=== PATIENT | female | born 1940 | race Caucasian/White ===

== ENCOUNTER 2017-02-11 16:28 | Inpatient (IN) | payer MEDICARE, OTHER ==
[~2017-02-11] VITALS: Ht 170.2 cm; Wt 103.6 kg
[~2017-02-11 16:28] MED LIST: ASPI-676 PO; CELE200C PO; CHOL2000 PO; CITA-98 PO; GLIM4TAB55 PO; HYD25 PO; LANT3I SC; LEVO88TA36 PO; MELA1TAB3 PO; MULT-552 PO; PIOG30TA19 PO; SITA1TAB7 PO; SMV40T PO; TIMO10DR7 BOTH EYES
[2017-02-11] MEDS ORDERED: HYDROCODONE/APAP (5/325) TAB PO ONE (18:00)
--- NOTE | 2017-02-11 18:45 | RADRPT ---
PROCEDURE: XR Left Elbow. CLINICAL INDICATION: Trauma, limited movement, fall TECHNIQUE: AP oblique and lateral views of the left elbow performed. COMPARISON: 03/17/2015 FINDINGS: The patient is status post ORIF of previous of fracture of olecranon process with plate and screws. There is deformity of the radial head suggestive of old fracture. There is an acute fracture of the lateral supracondylar region of the humerus with approximate 3 mm displacement of lateral fracture f ragment. 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 IMPRESSION: Acute fracture of the lateral supracondylar region of the humerus with approximate 3 mm displacement of lateral fracture fragment. Hemarthrosis. Chronic changes noted above. Please see above. RPTAT: HJES .Kapil Zuniga MD, Date Time Electronically viewed and signed by .Kapil Zuniga MD, on 02/11/2017 18:45 .S/
--- NOTE | 2017-02-11 18:46 | RADRPT ---
PROCEDURE: XR Hip. CLINICAL INDICATION: Fall TECHNIQUE: AP and lateral views of the left hip were performed. COMPARISON: None. FINDINGS: No acute fracture or dislocation is seen. Minimal osteoarthrosis at hip. IMPRESSION: No acute abnormality seen. Please see above. RPTAT: HJES .Kapil Zuniga MD, Date Time Electronically viewed and signed by .Kapil Zuniga MD, on 02/11/2017 18:46 .S/
--- NOTE | 2017-02-11 19:32 | RADRPT ---
PROCEDURE: CT of the left hip without contrast CLINICAL INDICATION: Trauma with left hip pain TECHNIQUE: CT scan of the left hip was performed on a GE [employer]ed 64-slice scanner. No IV cont rast was administered. Coronal and sagittal reformatted images were obtained from the axial source images. The CTDI is 18.37 mGy and the total exam DLP equals 575.35 mGy-cm. Images were reviewed on a high-resolution PACS workstation. COMPARISON: Plain films from 02/11/2017 FINDINGS: Diffuse osteopenia is seen. Nondisplaced fractures of the left acetabulum is seen involving the roof , quadrilateral plate, and anterior column. No other fracture is seen. No dislocation is identifie d. Soft tissue swelling in the adjacent fracture site is seen. No fluid collection or hematoma is identified. The visualized portions of the pelvis appear grossly unremarkable. IMPRESSION: 1. Nondisplaced fractures of the left acetabulum as detailed above. RPTAT: HPNM Physician Maricruz Date Time Electronically viewed and signed by Physician Maricruz on 02/11/2017 19:32 /
[2017-02-11 21:44] LABS: ADD SCAN DIFF NO
[2017-02-11 21:47] LABS: BASOPHIL # 0.1 10^3/ul (0.0-0.1); BASOPHILS % 0.5 % (0.0-2.0); EOSINOPHILS # 0.1 10^3/ul (0.0-0.5); EOSINOPHILS % 0.6 % (0.0-7.0); HEMATOCRIT 40.3 % (37.0-47.0); LYMPHOCYTES # 2.4 10^3/ul (0.8-2.9); MEAN CORPUSCULAR HEMOGLOBIN 30.4 pg (29.0-33.0); MEAN CORPUSCULAR HGB CONC 34.7 g/dl (32.0-37.0); MEAN CORPUSCULAR VOLUME 87.6 fl (82.0-101.0); MONOCYTE # 0.9 10^3/ul (0.3-0.9); MONOCYTES % 8.4 % (0.0-11.0); NEUTROPHILS % 66.9 % (39.0-77.0); PLATELET COUNT 204 10^3/UL (140-415); RED CELL DISTRIBUTION WIDTH 13.2 % (11.5-14.5); WHITE BLOOD COUNT 10.4 10^3/ul (4.8-10.8)
[2017-02-11 22:05] LABS: INR 1.02; PARTIAL THROMBOPLASTIN TIME 34.3 Sec (25.0-35.0); PROTIME 13.4 Sec (12.2-14.2)
--- NOTE | 2017-02-11 22:06 | ERA ---
ER Documentation Chief Complaint Date/Time DATE: 02/11/17 TIME: 21:47 Chief Complaint BIB RA 881 S/P FALL LEFT ELBOW PAIN AND ABRASION HPI Patient is a 76-year-old female who presents with sudden onset, constant, moderate, aching pain to left elbow and left hip after tripping over a garden hose and falling on her left side. The patient denies head trauma, neck pain, back pain, chest pain, abdominal pain. Patient denies numbness or paresthesia to the left arm or left leg. Patient denies taking blood thinners. ROS All systems reviewed and are negative except as per history of present illness. Medications Home Meds Reported Medications Brimonidine/Timolol* (Combigan*) 5 Ml Drops, 1 DROP BOTH EYES BID, BOTTLE INT 1 GTT INTO OU Q12H 02/11/17 Multivits-Min/Iron/FA/Lutein (Centrum Silver Women Tablet) 1 Each Tablet, 1 EACH PO, TAB 02/11/17 Ergocalciferol (Vitamin D2) (VITAMIN D2) 2,000 Unit Tablet, 2000 UNIT PO, TAB 02/11/17 Cholecalciferol* (Vitamin D3*) 2,000 Unit Cap, 2000 UNIT PO DAILY, CAP 03/16/15 Multivitamins* (Once Daily*) 1 Tab Tablet, 1 TAB PO DAILY, TAB 03/16/15 Sitagliptin Phos-Metformin Hcl (Janumet) 50-1,000 Mg Tablet, 1 TAB PO BID, TAB 03/16/15 Hydrochlorothiazide* (Hydrochlorothiazide*) 25 Mg Tab, 25 MG PO DAILY, TAB 03/16/15 Aspirin (Sumeet Child) 81 Mg Chew, 81 MG PO DAILY 09/21/11 Citalopram Hydrobromide* (Celexa*) 20 Mg Tablet, 20 MG PO DAILY 09/21/11 Celecoxib* (Celebrex*) 200 Mg Capsule, 200 MG PO DAILY 09/21/11 Pioglitazone Hcl* (Actos*) 30 Mg Tablet, 30 MG PO DAILY 09/21/11 Glimepiride* (Amaryl*) 4 Mg Tablet, 4 MG PO BID 09/21/11 Levothyroxine Sodium (Levothroid) 88 Mcg Tablet, 88 MCG PO DAILY 09/21/11 Simvastatin (Simvastatin) 40 Mg Tablet, 40 MG PO DAILY 09/21/11 Discontinued Reported Medications Timolol Maleate* (Timoptic*) 0.5%- 5ml Opht, 1 DROP BOTH EYES BID, EA 03/16/15 Melatonin-Pyridoxine Hcl (Melatonin) 5-1 Mg Tablet, 1 TAB PO HS, TAB 03/16/15 Discontinued Scripts Insulin Glargine* (Lantus*) 100 Unit/Ml Soln, 10 UNIT SC QHS for 30 Days Prov:BENJY MCCRAY S. 03/21/15 Allergies Allergies: Coded Allergies: morphine (Unverified Allergy, Unknown, 02/11/17) niacin (Unverified Adverse Reaction, Intermediate, REDNESS, 02/11/17) Uncoded Allergies: IVP CONTRAST (Adverse Reaction, Severe, RASH, 09/21/11) PMhx/Soc Past medical history: Diabetes, hypertension, hyperlipidemia Past surgical history: Bilateral knees, left elbow, appendectomy Social history: Denies tobacco or alcohol History of Surgery: Yes (LEFT KNEE REPLACEMENT, LEFT ARM FRACTURE W/ PLATES PLACEMENT) Anesthesia Reaction: No Hx Neurological Disorder: Yes (SYNCOPAL EPISODES) Hx Respiratory Disorders: No Hx Cardiac Disorders: Yes (HTN, RT BUNDLE BRANCH BLOCK) Hx Psychiatric Problems: No Hx Miscellaneous Medical Probl: Yes (HTN, hypothyroidism, DM, HLD, L TKA, tonsillectomy. ) Hx Alcohol Use: No Hx Substance Use: No Hx Tobacco Use: No FmHx Family History: No coronary disease, No diabetes Physical Exam Vitals Vital Signs Date Time Temp Pulse Resp B/P Pulse Ox O2 Delivery O2 Flow Rate FiO2 02/11/17 16:31 97.5 84 20 140/80 100 Physical Exam Const: Alert, no acute distress Head: Atraumatic Eyes: Normal Conjunctiva, no pallor, no icterus ENT: Normal External Ears, Nose and Mouth. Moist mucous membranes Neck: Full range of motion..~ No meningismus. No midline tenderness Resp: Clear to auscultation bilaterally, no wheezes, no rales. Chest wall stable nontender Cardio: Regular rate and rhythm, no murmurs Abd: Soft, non tender, non distended. Normal bowel sounds Skin: No petechiae or rashes, intact Back: No midline or flank tenderness Ext: No cyanosis, or edema. Pain with ranging of left hip. Tenderness and swelling of left elbow. No wrist or shoulder tenderness. 2 second cap refill in all digits, 2+ radial and DP pulses bilaterally Neur: Awake and alert, cranial nerves II through XII intact bilaterally, strength and sensation intact in median, radial, and ulnar nerve distribution in left arm. Psych: Normal Mood and Affect Result Diagram: 02/11/17210902/11/172109 Results 24 hrs Laboratory Tests Test 02/11/17 21:10 02/11/17 21:56 White Blood Count 10.410^3/ul Red Blood Count 4.6010^6/ul Hemoglobin 14.0g/dl Hematocrit 40.3% Mean Corpuscular Volume 87.6fl Mean Corpuscular Hemoglobin 30.4pg Mean Corpuscular Hemoglobin Concent 34.7g/dl Red Cell Distribution Width 13.2% Platelet Count 65212^3/UL Mean Platelet Volume 10.0fl Neutrophils % 66.9% Lymphocytes % 23.0% Monocytes % 8.4% Eosinophils % 0.6% Basophils % 0.5% Nucleated Red Blood Cells % 0.0/100WBC Neutrophils # 7.010^3/ul Lymphocytes # 2.410^3/ul Monocytes # 0.910^3/ul Eosinophils # 0.110^3/ul Basophils # 0.110^3/ul Nucleated Red Blood Cells # 0.010^3/ul Prothrombin Time 13.4Sec Prothrombin Time Ratio 1.0 INR International Normalized Ratio 1.02 Activated Partial Thromboplast Time 34.3Sec Sodium Level 138mmol/L Potassium Level 3.3mmol/L Chloride Level 100mmol/L Carbon Dioxide Level 25mmol/L Anion Gap 16 Blood Urea Nitrogen 29mg/dl Creatinine 1.05mg/dl Glucose Level 129mg/dl Calcium Level 10.9mg/dl Bedside Glucose 144mg/dL Current Medications Medications (Trade) Dose Ordered Sig/Damien Route PRN Reason Start Time Stop Time Status Last Admin Dose Admin Acetaminophen/ Hydrocodone Bitart ([place] (5/325)) 1 tab ONCE ONCE PO 02/11/17 18:00 02/11/17 18:01 DC 02/11/17 18:01 Ondansetron HCl (Zofran Odt) 4 mg ONCE ONCE ODT 02/11/17 22:13 02/11/17 22:14 DC 02/11/17 22:15 Acetaminophen/ Hydrocodone Bitart ([place] (10/325)) 1 tab ONCE ONCE PO 02/11/17 23:30 02/11/17 23:31 DC 02/11/17 23:06 Procedures/MDM ED course: Patient requested transfer to [facility] for orthopedic surgery. I spoke with Dr. Cast, on-call for the patient's primary, Dr. Crespo. She stated that she could not admit the patient. I spoke with Dr. Baxter, the patient's orthopedic surgeon. He stated that he would consult on the patient would not be the primary admitting doctor. He recommended attempting admission to Dr. Foster. Attempted to contact Dr. Foster for admission, but I was advised that the hospital did not have any available beds. I discussed this with the patient and she agreed to be admitted at [facility]. MDM: Patient is a 76-year-old female with mechanical ground-level fall after tripping on a hose who is found to have left acetabular fracture and left supracondylar humerus fracture. She is neurovascularly intact on serial exams. Compartments are soft. She was placed in a left long-arm splint. I discussed the case with Dr. Kaiser, orthopedic surgeon on-call, and he agrees to see the patient. The patient will be admitted for further workup and treatment given difficulty ambulating due to acetabular fracture. There is no evidence of head injury or other injury on exam. Departure Diagnosis: Primary Impression: Left acetabular fracture Qualified Code: S32.402A - Closed nondisplaced fracture of left acetabulum, unspecified portion of acetabulum, initial encounter Additional Impression: Left supracondylar humerus fracture Qualified Code: S42.412A - Left supracondylar humerus fracture, closed, initial encounter Condition: Stable ALHAJI BOATENG MD February 11, 2017 22:06
[2017-02-11 22:07] LABS: POTASSIUM 3.3 mmol/L (3.5-5.1)
[2017-02-11 22:09] LABS: CREATININE 1.05 mg/dl (0.44-1.00)
[2017-02-11 22:10] LABS: CALCIUM 10.9 mg/dl (8.4-10.2)
[2017-02-11] MEDS ORDERED: ONDANSETRON (ODT) 4 MG TAB ODT ONE (22:13)
[2017-02-11] MEDS ORDERED: MULT-853 PO (23:23)
[2017-02-11] MEDS ORDERED: ERGO2000 PO (23:23)
[2017-02-11] MEDS ORDERED: COMBIG5 BOTH EYES (23:24)
[2017-02-11] MEDS ORDERED: HYDROCODONE/APAP (10/325) TAB PO ONE (23:30)
[2017-02-12] MEDS ORDERED: ACETAMINOPHEN 325 MG TAB PO PRN
[2017-02-12 00:40] VITALS: BP 152/67; PULSE 71; RESP 18; Ht 170.2 cm; Wt 103.6 kg
[2017-02-12] MEDS ORDERED: POTASSIUM CHLORIDE 20 MEQ POWDER FOR ORAL SOLN PO ONE (01:00)
[2017-02-12] MEDS: HYDROmorphONE 1 MG/ML SYG IV PRN ×4 (01:56→22:19)
[2017-02-12] MEDS ORDERED: ONDANSETRON 4 MG INJ IV PRN ×2 (02:00)
[2017-02-12] MEDS ORDERED: NACL 0.9% 3 ML SYG IV SCH (03:00)
[2017-02-12] MEDS ORDERED: GLUCOSE GEL 15 GRAM TUBE PO PRN ×2 (03:00)
[2017-02-12] MEDS ORDERED: DOCUSATE SODIUM 100 MG CAP PO PRN (03:00)
[2017-02-12] MEDS ORDERED: GLUCAGON 1 MG INJ IM PRN (03:00)
[2017-02-12] MEDS ORDERED: GLUCOSE GEL 15 GRAM TUBE BUCCAL PRN (03:00)
[2017-02-12] MEDS: FAMOTIDINE 20 MG TAB PO SCH ×3 (03:00→21:00)
[2017-02-12] MEDS ORDERED: DEXTROSE 50% 50 ML SYRINGE IV PRN ×2 (03:00)
[2017-02-12] MEDS ORDERED: BISACODYL (EC) 5 MG TAB PO PRN (03:00)
[2017-02-12] MEDS: BRIMONIDINE 0.2%-TIMOLOL 0.5% 5ML OPH BOTH EYES SCH ×3 (03:00→21:01)
[2017-02-12 05:14] LABS: ADD SCAN DIFF NO
[2017-02-12 05:21] LABS: BASOPHILS % 0.2 % (0.0-2.0); EOSINOPHILS % 0.2 % (0.0-7.0); HEMATOCRIT 36.8 % (37.0-47.0); HEMOGLOBIN 12.3 g/dl (12.0-16.0); LYMPHOCYTES # 1.9 10^3/ul (0.8-2.9); MEAN CORPUSCULAR HEMOGLOBIN 29.9 pg (29.0-33.0); MEAN CORPUSCULAR HGB CONC 33.4 g/dl (32.0-37.0); MEAN CORPUSCULAR VOLUME 89.5 fl (82.0-101.0); MEAN PLATELET VOLUME 10.5 fl (7.4-10.4); MONOCYTES % 11.6 % (0.0-11.0); NEUTROPHIL # 5.3 10^3/ul (1.6-7.5); NEUTROPHILS % 64.6 % (39.0-77.0); PLATELET COUNT 183 10^3/UL (140-415); RED BLOOD COUNT 4.11 10^6/ul (4.20-5.40); RED CELL DISTRIBUTION WIDTH 13.5 % (11.5-14.5); WHITE BLOOD COUNT 8.2 10^3/ul (4.8-10.8)
[2017-02-12 05:53] LABS: ALBUMIN 3.6 g/dl (3.3-4.9); ALBUMIN/GLOBULIN RATIO 1.24; BILIRUBIN,INDIRECT 0.5 mg/dl (0-1.1); BILIRUBIN,TOTAL 0.5 mg/dl (0.2-1.3); CALCIUM 10.3 mg/dl (8.4-10.2); CREATININE 1.25 mg/dl (0.44-1.00); POTASSIUM 3.9 mmol/L (3.5-5.1); TOTAL PROTEIN 6.5 g/dl (6.1-8.1)
[2017-02-12] MEDS: LEVOTHYROXINE 88 MCG TAB PO SCH (06:00)
[2017-02-12] MEDS: HEPARIN 5,000 UNIT/0.5 ML VIAL SC SCH ×3 (06:02→21:50)
[2017-02-12 07:48] VITALS: BP 124/56; RESP 16
[2017-02-12] MEDS: INSULIN ASPART [NOVOLOG] 3 ML PEN SC SCH ×4 (07:50→21:00)
--- NOTE | 2017-02-12 08:26 | HP ---
Date/Time of Note Date/Time of Note DATE: 02/12/17 TIME: 08:14 Assessment/Plan VTE Prophylaxis VTE Prophylaxis Intervention: heparin Lines/Catheters Urinary Cath still in place: Yes Reason Cath still needed: other (indicate) (immobility) Assessment/Plan Chief Complaint/Hosp Course This is a 76-year-old female being admitted to [facility] for: #1 Left acetabular fracture: Nondisplaced fracture on CT of the lower extremity. Keep patient currently on bedrest. Insert Blake catheter secondary to immobilization. Will consult orthopedic surgery. IV pain control. #2 left humerus fracture: Arm currently in a cast. Will keep patient on bedrest. IV pain control. Consult orthopedic surgery. #3 Diabetes mellitus: We will hold current oral medications, put patient on insulin sliding scale. Diabetic diet. #4 hyperlipidemia: Continue statin #5 hypothyroidism: Continue Synthroid #6 glaucoma: Continue daily ophthalmic medication. #7 DVT and GI prophylaxis: Heparin subq, famotidine Problems: HPI/ROS Admit Date/Time Admit Date/Time February 11, 2017 at 23:35 Hx of Present Illness Chief complaint: Fall and pain of left upper and lower extremity Patient is a 76-year-old female who presents with sudden onset, constant, moderate, aching pain to left elbow and left hip after tripping over a garden hose and falling on her left side. The patient denies head trauma, neck pain, back pain, chest pain, abdominal pain. Patient denies numbness or paresthesia to the left arm or left leg. Patient denies taking blood thinners. Patient currently is lying comfortably in bed but does experience some distress when she tries to move her left upper extremity or her left hip. Allergies: IV contrast, morphine, niacin Medication: See INDU MCMAHON Const: As per HPI Eyes : No pain discharge or redness or change in visual acuity ENT: No pain, sore throat, congestion, congestion, dysphagia or discharge Respiratory: No shortness of breath, cough, sputum, wheezing, or pleuritic pain Cardiovascular: No chest pain, palpitation, PND, or edema GI : no change in appetite, abdominal pain, nausea, vomiting, diarrhea, constipation, or change in the color his stool Genitourinary: No dysuria, hematuria, flank pain , discharge or CVA tenderness Musculoskeletal: As per HPI Skin: No rash, bruising or hives Neuro: No headache, dizziness, syncope, seizure, focal weakness Endocrine: No polyuria, polydipsia, temperature intolerance Psych: No hallucination, depression, anxiety or suicidal ideation PMH/Family/Social Past Medical History Diabetes mellitus, glaucoma, hyperlipidemia, anxiety Past Surgical History Left knee replacement, left elbow surgery Family History Significant Family History: diabetes (Mom), other (Father with history of TB.) Social History Alcohol Use: none Smoking Status: Never smoker Drug Use: none Exam/Review of Systems Vital Signs Vitals Vital Signs Date Time Temp Pulse Resp B/P Pulse Ox O2 Delivery O2 Flow Rate FiO2 02/12/17 07:48 98.5 73 16 124/56 95 02/12/17 00:40 Room Air Intake and Output 02/11/17 02/11/17 02/12/17 14:59 22:59 06:59 Intake Total 340 ml Output Total 500 ml Balance -160 ml Exam Exam General: Patient is sitting in bed in mild distress from pain HEENT: Atraumatic, normocephalic. The pupils are equal, round and reactive. Extraocular motor are intact Neck: Supple with full range of motion. No rigidity or meningismus Chest: Nontender Lungs: Clear to auscultation bilaterally no crackles rales or wheezing Heart: Normal S1-S2, Regular rhythm and rate. Abdomen: Soft , nontender, nondistended , bowel sounds are present. No guarding no rebound tenderness , No masses or organomegaly. No costovertebral temporal angle mass Extremities: Left upper extremity with very poor or limited range of motion, left lower extremity tenderness to deep palpation Neurologic: Normal mental status, speech normal, cranial nerves II through XII are intact, motor and sensory are intact, no focal weakness Additional Comments PROCEDURE: CT of the left hip without contrast CLINICAL INDICATION: Trauma with left hip pain TECHNIQUE: CT scan of the left hip was performed on a GE [employer] 64-slice scanner. No IV contrast was administered. Coronal and sagittal reformatted images were obtained from the axial source images. The CTDI is 18.37 mGy and the total exam DLP equals 575.35 mGy-cm. Images were reviewed on a high- resolution PACS workstation. COMPARISON: Plain films from 02/11/2017 FINDINGS: Diffuse osteopenia is seen. Nondisplaced fractures of the left acetabulum is seen involving the roof, quadrilateral plate, and anterior column. No other fracture is seen. No dislocation is identified. Soft tissue swelling in the adjacent fracture site is seen. No fluid collection or hematoma is identified. The visualized portions of the pelvis appear grossly unremarkable. IMPRESSION: 1. Nondisplaced fractures of the left acetabulum as detailed above. RPTAT: HPNM Physician Maricruz Date Time Electronically viewed and signed by Edi Henson Physician on 02/11/2017 19 :32 PROCEDURE: XR Left Elbow. CLINICAL INDICATION: Trauma, limited movement, fall TECHNIQUE: AP oblique and lateral views of the left elbow performed. COMPARISON: 03/17/2015 FINDINGS: The patient is status post ORIF of previous of fracture of olecranon process with plate and screws. There is deformity of the radial head suggestive of old fracture. There is an acute fracture of the lateral supracondylar region of the humerus with approximate 3 mm displacement of lateral fracture fragment. 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 IMPRESSION: Acute fracture of the lateral supracondylar region of the humerus with approximate 3 mm displacement of lateral fracture fragment. Hemarthrosis. Chronic changes noted above. Please see above. RPTAT: HJES .Kapil Zuniga MD, MD Date Time Electronically viewed and signed by .Kapil Zuniga MD, on 02/11/2017 18:45 PROCEDURE: XR Hip. CLINICAL INDICATION: Fall TECHNIQUE: AP and lateral views of the left hip were performed. COMPARISON: None. FINDINGS: No acute fracture or dislocation is seen. Minimal osteoarthrosis at hip. Labs Result Diagram: 02/12/17 0435 02/12/17 0435 Medications Medications Current Medications Hydromorphone HCl (Dilaudid) 0.5 mg Q4H PRN IV PAIN Last administered on t 01:56; Admin Dose 0.5 MG; Start 02/12/17 at 02:00 Acetaminophen/ Hydrocodone Bitart ([place] (5/325)) 1 tab Q6H PRN PO PAIN LEVEL 4 -6; Start 02/12/17 at 02:00 Ondansetron HCl (Zofran Inj) 4 mg Q6H PRN IV NAUSEA AND/OR VOMITING; Start at 02:00 Brimonidine/ Timolol (Combigan Oph) 1 drop BID BOTH EYES ; Start 02/12/17 at 03: 00 Citalopram Hydrobromide (Celexa) 20 mg DAILY PO ; Start 02/12/17 at 09:00 Hydrochlorothiazide (Hydrochlorothiazide) 25 mg DAILY PO ; Start 02/12/17 at 09: 00 Levothyroxine Sodium (Synthroid) 88 mcg DAILY@06 PO Last administered on 06:00; Admin Dose 88 MCG; Start 02/12/17 at 06:00 Atorvastatin Calcium (Lipitor) 20 mg DAILY@21 PO ; Start 02/12/17 at 21:00 Diagnostic Test (Pha) (Accu-Chek) 1 ea 02 XX ; Start 02/13/17 at 02:00 Docusate Sodium (Colace) 100 mg Q12H PRN PO CONSTIPATION; Start 02/12/17 at 03: 00 Bisacodyl (Dulcolax) 5 mg DAILY PRN PO CONSTIPATION; Start 02/12/17 at 03:00 Famotidine (Pepcid) 20 mg Q12 PO ; Start 02/12/17 at 03:00 Heparin Sodium (Porcine) (Heparin (5000 Units/0.5 ml)) 5,000 unit Q8 SC Last administered on 02/12/17 06:02; Admin Dose 5,000 UNIT; Start 02/12/17 at 06:00 Miscellaneous Information 1 ea NOTE XX ; Start 02/12/17 at 03:00 Glucose (Glutose) 15 gm Q15M PRN PO DECREASED GLUCOSE; Start 02/12/17 at 03:00 Glucose (Glutose) 22.5 gm Q15M PRN PO DECREASED GLUCOSE; Start 02/12/17 at 03: 00 Dextrose (D50w Syringe) 25 ml Q15M PRN IV DECREASED GLUCOSE; Start 02/12/17 at 03:00 Dextrose (D50w Syringe) 50 ml Q15M PRN IV DECREASED GLUCOSE; Start 02/12/17 at 03:00 Glucagon (Glucagen) 1 mg Q15M PRN IM DECREASED GLUCOSE; Start 02/12/17 at 03:00 Glucose (Glutose) 15 gm Q15M PRN BUCCAL DECREASED GLUCOSE; Start 02/12/17 at 03 :00 ARJUN GRANT February 12, 2017 08:24
[2017-02-12] MEDS: HYDROCHLOROTHIAZIDE 25 MG TAB PO SCH (08:54)
[2017-02-12] MEDS ORDERED: CITALOPRAM 20 MG TAB PO SCH (09:00)
--- NOTE | 2017-02-12 10:23 | EN ---
Date/Time of Note Date/Time of Note DATE: 02/12/17 TIME: 10:21 Event Note Medicine Medicine Event Note Patient comfortable following admission Still has moderate pain left shoulder Vital signs remain stable GENERAL: VITAL SIGNS: per chart NECK: Supple. No JVD or lymphadenopathy. CARDIAC EXAM: S1, S2. No added sounds or murmurs. CHEST: clear bilaterally, No added sounds, rales or wheezes ABDOMEN: Soft, nontender. No guarding or rebound. EXTREMITIES: No cyanosis, clubbing or edema. NEUROLOGIC: Generalized weakness. No focal deficits. Well-nourished well- developed lady comfortable at rest Assessment 1. Acute left acetabular fracture 2. History of hypothyroidism 3. History of hyperlipidemia Plan Patient requesting to be transferred to [facility] where she has her primary care and long-standing orthopedic surgeon. We will continue pain control Continue DVT GI prophylaxis Discussed with case management who will attempt to transfer to her requested facility. FELICITA HILL MD, [facility] February 12, 2017 10:23
[2017-02-12 19:46] VITALS: BP 113/53; RESP 17
[2017-02-12] MEDS: CITALOPRAM 20 MG TAB PO SCH (21:00)
[2017-02-12] MEDS: ATORVASTATIN 20 MG TAB PO SCH (21:00)
[2017-02-13] MEDS: ACCU-CHEK XX SCH (02:00)
[2017-02-13 05:06] LABS: ADD SCAN DIFF NO
[2017-02-13 05:10] LABS: BASOPHILS % 0.4 % (0.0-2.0); EOSINOPHILS # 0.1 10^3/ul (0.0-0.5); EOSINOPHILS % 1.2 % (0.0-7.0); HEMATOCRIT 36.8 % (37.0-47.0); HEMOGLOBIN 12.6 g/dl (12.0-16.0); LYMPHOCYTES # 1.1 10^3/ul (0.8-2.9); LYMPHOCYTES % 13.2 % (15.0-51.0); MEAN CORPUSCULAR HEMOGLOBIN 30.9 pg (29.0-33.0); MEAN CORPUSCULAR HGB CONC 34.2 g/dl (32.0-37.0); MEAN CORPUSCULAR VOLUME 90.2 fl (82.0-101.0); MEAN PLATELET VOLUME 9.9 fl (7.4-10.4); MONOCYTE # 0.7 10^3/ul (0.3-0.9); NEUTROPHIL # 6.5 10^3/ul (1.6-7.5); NEUTROPHILS % 76.5 % (39.0-77.0); PLATELET COUNT 170 10^3/UL (140-415); RED BLOOD COUNT 4.08 10^6/ul (4.20-5.40); RED CELL DISTRIBUTION WIDTH 13.3 % (11.5-14.5); WHITE BLOOD COUNT 8.5 10^3/ul (4.8-10.8)
[2017-02-13 05:28] LABS: CALCIUM 9.8 mg/dl (8.4-10.2); CREATININE 1.05 mg/dl (0.44-1.00); MAGNESIUM 1.5 mg/dl (1.7-2.5); PHOSPHORUS 2.8 mg/dl (2.5-4.9); POTASSIUM 3.9 mmol/L (3.5-5.1)
[2017-02-13] MEDS: LEVOTHYROXINE 88 MCG TAB PO SCH (06:33)
[2017-02-13] MEDS: HEPARIN 5,000 UNIT/0.5 ML VIAL SC SCH ×3 (06:36→21:49)
[2017-02-13 08:06] VITALS: BP 115/52; RESP 19
[2017-02-13] MEDS: INSULIN ASPART [NOVOLOG] 3 ML PEN SC SCH ×4 (08:43→21:04)
[2017-02-13] MEDS: FAMOTIDINE 20 MG TAB PO SCH ×2 (08:45→21:05)
[2017-02-13] MEDS: HYDROCHLOROTHIAZIDE 25 MG TAB PO SCH (08:46)
[2017-02-13] MEDS: BRIMONIDINE 0.2%-TIMOLOL 0.5% 5ML OPH BOTH EYES SCH ×2 (08:46→21:03)
[2017-02-13] MEDS: HYDROmorphONE 1 MG/ML SYG IV PRN ×2 (10:17→21:43)
--- NOTE | 2017-02-13 14:45 | PN ---
Date/Time of Note Date/Time of Note DATE: 02/13/17 TIME: 14:39 Assessment/Plan VTE Prophylaxis VTE Prophylaxis Intervention: LMWH Lines/Catheters IV Catheter Type (from Nrs): Saline Lock Urinary Cath still in place: Yes Reason Cath still needed: other (indicate) Assessment/Plan Chief Complaint/Hosp Course Assessment 1. Acute left acetabular fracture 2. Left humeral fracture 2. History of hypothyroidism 3. History of hyperlipidemia Plan Patient requested to be transferred to [facility] where she has her primary care and long-standing orthopedic surgeon, though unfortunately it is a lateral transfer and it will not be possible to transfer the patient to an acute setting. I have spoken to her orthopedic surgeon Dr. de leon and he has recommended several orthopedic surgeon at this facility. We will continue pain control Continue DVT GI prophylaxis Orthopedic surgeon has been consulted will follow up his recommendations Problems: Subjective 24 Hr Interval Summary Free Text/Dictation She is lying comfortably without distress She continues to complain of having left upper extremity and hip pain Denies of any abdominal pain, shortness of breath or chest pain Exam/Review of Systems Vital Signs Vitals Vital Signs Date Time Temp Pulse Resp B/P Pulse Ox O2 Delivery O2 Flow Rate FiO2 02/13/17 08:06 98.0 88 19 115/52 98 02/12/17 00:40 Room Air Intake and Output 02/12/17 02/12/17 02/13/17 15:00 23:00 07:00 Intake Total 1460 ml 720 ml Output Total 500 ml 1000 ml Balance 960 ml -280 ml Exam General: The patient is morbidly obese, Not in acute distress. HEENT: Atraumatic, normocephalic. The pupils are equal and round . Neck: Supple with full range of motion. Chest: Normal expansion of the thorax during inspiration Lungs: Clear to auscultation bilaterally Heart: Normal S1-S2, Regular rhythm and rate. Abdomen: Soft , nontender, nondistended , bowel sounds are present. Extremities: Decreased range of motion in left lower extremity secondary to pain at the hip, left upper extremity is wrapped in soft cast, no edema no cyanosis Neurologic: Normal mental status,The patient is awake, alert and oriented . Results Result Diagram: 02/13/17 0445 02/13/17 0445 Results 24 hrs Laboratory Tests Test 02/12/17 17:42 02/12/17 20:59 02/13/17 04:45 02/13/17 07:47 Bedside Glucose 171 166 204 White Blood Count 8.5 Red Blood Count 4.08 L Hemoglobin 12.6 Hematocrit 36.8 L Mean Corpuscular Volume 90.2 Mean Corpuscular Hemoglobin 30.9 Mean Corpuscular Hemoglobin Concent 34.2 Red Cell Distribution Width 13.3 Platelet Count 170 Mean Platelet Volume 9.9 Neutrophils % 76.5 Lymphocytes % 13.2 L Monocytes % 8.0 Eosinophils % 1.2 Basophils % 0.4 Nucleated Red Blood Cells % 0.0 Neutrophils # 6.5 Lymphocytes # 1.1 Monocytes # 0.7 Eosinophils # 0.1 Basophils # 0.0 Nucleated Red Blood Cells # 0.0 Sodium Level 132 L Potassium Level 3.9 Chloride Level 100 Carbon Dioxide Level 27 Anion Gap 9 Blood Urea Nitrogen 24 H Creatinine 1.05 H Glucose Level 242 H Calcium Level 9.8 Phosphorus Level 2.8 Magnesium Level 1.5 L Test 02/13/17 12:28 Bedside Glucose 219 Medications Medications Current Medications Hydromorphone HCl (Dilaudid) 0.5 mg Q4H PRN IV PAIN Last administered on 10:17; Admin Dose 0.5 MG; Start 02/12/17 at 02:00 Acetaminophen/ Hydrocodone Bitart ([place] (5/325)) 1 tab Q6H PRN PO PAIN LEVEL 4 -6; Start 02/12/17 at 02:00 Ondansetron HCl (Zofran Inj) 4 mg Q6H PRN IV NAUSEA AND/OR VOMITING; Start at 02:00 Brimonidine/ Timolol (Combigan Oph) 1 drop BID BOTH EYES Last administered on 08:46; Admin Dose 1 DROP; Start 02/12/17 at 03:00 Hydrochlorothiazide (Hydrochlorothiazide) 25 mg DAILY PO Last administered on 08:46; Admin Dose 25 MG; Start 02/12/17 at 09:00 Levothyroxine Sodium (Synthroid) 88 mcg DAILY@06 PO Last administered on 06:33; Admin Dose 88 MCG; Start 02/12/17 at 06:00 Atorvastatin Calcium (Lipitor) 20 mg DAILY@21 PO Last administered on 21:00; Admin Dose 20 MG; Start 02/12/17 at 21:00 Diagnostic Test (Pha) (Accu-Chek) 1 ea 02 XX ; Start 02/13/17 at 02:00 Docusate Sodium (Colace) 100 mg Q12H PRN PO CONSTIPATION; Start 02/12/17 at 03: 00 Bisacodyl (Dulcolax) 5 mg DAILY PRN PO CONSTIPATION; Start 02/12/17 at 03:00 Famotidine (Pepcid) 20 mg Q12 PO Last administered on 02/13/17 08:45; Admin Dose 20 MG; Start 02/12/17 at 03:00 Heparin Sodium (Porcine) (Heparin (5000 Units/0.5 ml)) 5,000 unit Q8 SC Last administered on 02/13/17 06:36; Admin Dose 5,000 UNIT; Start 02/12/17 at 06:00 Miscellaneous Information 1 ea NOTE XX ; Start 02/12/17 at 03:00 Glucose (Glutose) 15 gm Q15M PRN PO DECREASED GLUCOSE; Start 02/12/17 at 03:00 Glucose (Glutose) 22.5 gm Q15M PRN PO DECREASED GLUCOSE; Start 02/12/17 at 03: 00 Dextrose (D50w Syringe) 25 ml Q15M PRN IV DECREASED GLUCOSE; Start 02/12/17 at 03:00 Dextrose (D50w Syringe) 50 ml Q15M PRN IV DECREASED GLUCOSE; Start 02/12/17 at 03:00 Glucagon (Glucagen) 1 mg Q15M PRN IM DECREASED GLUCOSE; Start 02/12/17 at 03:00 Glucose (Glutose) 15 gm Q15M PRN BUCCAL DECREASED GLUCOSE; Start 02/12/17 at 03 :00 Citalopram Hydrobromide (Celexa) 20 mg DAILY@21 PO Last administered on 21:00; Admin Dose 20 MG; Start 02/12/17 at 21:00 NASIM GARIBAY MD February 13, 2017 14:45
[2017-02-13] MEDS ORDERED: MAGNESIUM SULFATE 2 GM/50 ML 50 ML IVPB ONE (16:30)
[2017-02-13 17:22] VITALS: BP 160/71; PULSE 81; RESP 20
[2017-02-13 19:41] VITALS: BP 149/74; RESP 20
[2017-02-13] MEDS: ATORVASTATIN 20 MG TAB PO SCH (21:05)
[2017-02-13] MEDS: CITALOPRAM 20 MG TAB PO SCH (21:05)
[2017-02-14] MEDS: ACCU-CHEK XX SCH (02:00)
[2017-02-14] MEDS: HYDROmorphONE 1 MG/ML SYG IV PRN ×3 (03:49→21:00)
[2017-02-14 05:16] LABS: ADD SCAN DIFF NO
[2017-02-14 05:25] LABS: BASOPHILS % 0.3 % (0.0-2.0); EOSINOPHILS # 0.1 10^3/ul (0.0-0.5); EOSINOPHILS % 1.3 % (0.0-7.0); LYMPHOCYTES # 1.8 10^3/ul (0.8-2.9); LYMPHOCYTES % 20.2 % (15.0-51.0); MEAN CORPUSCULAR HEMOGLOBIN 30.2 pg (29.0-33.0); MEAN CORPUSCULAR HGB CONC 34.3 g/dl (32.0-37.0); MEAN CORPUSCULAR VOLUME 88.2 fl (82.0-101.0); MEAN PLATELET VOLUME 10.4 fl (7.4-10.4); MONOCYTE # 0.9 10^3/ul (0.3-0.9); MONOCYTES % 9.8 % (0.0-11.0); NEUTROPHIL # 6.2 10^3/ul (1.6-7.5); NEUTROPHILS % 68.2 % (39.0-77.0); PLATELET COUNT 175 10^3/UL (140-415); RED BLOOD COUNT 3.97 10^6/ul (4.20-5.40); RED CELL DISTRIBUTION WIDTH 12.9 % (11.5-14.5)
[2017-02-14 05:40] LABS: POTASSIUM 3.3 mmol/L (3.5-5.1)
[2017-02-14 05:42] LABS: CREATININE 0.88 mg/dl (0.44-1.00)
[2017-02-14 05:43] LABS: CALCIUM 9.7 mg/dl (8.4-10.2); MAGNESIUM 1.9 mg/dl (1.7-2.5)
[2017-02-14] MEDS: LEVOTHYROXINE 88 MCG TAB PO SCH (06:39)
[2017-02-14] MEDS: HEPARIN 5,000 UNIT/0.5 ML VIAL SC SCH ×3 (06:42→21:38)
[2017-02-14 07:57] VITALS: BP 152/67; RESP 19
[2017-02-14] MEDS: FAMOTIDINE 20 MG TAB PO SCH ×2 (09:04→21:00)
[2017-02-14] MEDS: HYDROCHLOROTHIAZIDE 25 MG TAB PO SCH (09:04)
[2017-02-14] MEDS: BRIMONIDINE 0.2%-TIMOLOL 0.5% 5ML OPH BOTH EYES SCH ×2 (09:04→21:00)
[2017-02-14] MEDS: INSULIN ASPART [NOVOLOG] 3 ML PEN SC SCH ×4 (09:09→21:10)
--- NOTE | 2017-02-14 11:04 | PN ---
Date/Time of Note Date/Time of Note DATE: 02/14/17 TIME: 11:02 Assessment/Plan VTE Prophylaxis VTE Prophylaxis Intervention: SCD's Lines/Catheters IV Catheter Type (from Nrs): Saline Lock Urinary Cath still in place: Yes Reason Cath still needed: other (indicate) Assessment/Plan Chief Complaint/Hosp Course Assessment 1. Acute left acetabular fracture No surgical intervention indicated at this time 2. Left humeral fracture Orthopedic surgeon has been consulted, follow up CT Follow-up orthopedic surgeon recommendation, continue pain medication 2. History of hypothyroidism 3. History of hyperlipidemia Plan Patient requested to be transferred to [facility] where she has her primary care and long-standing orthopedic surgeon, though unfortunately it is a lateral transfer and it will not be possible to transfer the patient to an acute setting. I have spoken to her orthopedic surgeon Dr. de leon and he has recommended several orthopedic surgeon at this facility. We will continue pain control Continue DVT GI prophylaxis Orthopedic surgeon has been consulted will follow up his recommendations Problems: Subjective 24 Hr Interval Summary Free Text/Dictation Patient continues to complain of having left hip and left upper extremity pain No nausea vomiting diarrhea Denies of any chest pain Exam/Review of Systems Vital Signs Vitals Vital Signs Date Time Temp Pulse Resp B/P Pulse Ox O2 Delivery O2 Flow Rate FiO2 02/14/17 07:57 98.1 64 19 152/67 94 02/13/17 17:22 Room Air Intake and Output 02/13/17 02/13/17 02/14/17 15:00 23:00 07:00 Intake Total 1290 ml 700 ml Output Total 1900 ml 1225 ml Balance -610 ml -525 ml Exam General: The patient is moderately overweight. BMI of 35.8, Not in acute distress. HEENT: Atraumatic, normocephalic. The pupils are equal and round . Neck: Supple with full range of motion. Chest: Normal expansion of the thorax during inspiration Lungs: Clear to auscultation bilaterally Heart: Normal S1-S2, Regular rhythm and rate. Abdomen: Soft , nontender, nondistended , bowel sounds are present. Extremities: Decreased range of motion in the left lower extremity secondary to pain, left upper extremity is in soft cast, no edema no cyanosis Neurologic: Normal mental status,The patient is awake, alert and oriented . Results Result Diagram: 02/14/17 0420 02/14/17 0415 Results 24 hrs Laboratory Tests Test 02/13/17 12:28 02/13/17 17:13 02/13/17 20:46 02/14/17 02:17 Bedside Glucose 219 262 H 269 H 197 Test 02/14/17 04:15 02/14/17 04:20 02/14/17 08:07 Sodium Level 135 Potassium Level 3.3 L Chloride Level 97 Carbon Dioxide Level 28 Anion Gap 13 Blood Urea Nitrogen 17 Creatinine 0.88 Glucose Level 207 Calcium Level 9.7 Magnesium Level 1.9 White Blood Count 9.0 Red Blood Count 3.97 L Hemoglobin 12.0 Hematocrit 35.0 L Mean Corpuscular Volume 88.2 Mean Corpuscular Hemoglobin 30.2 Mean Corpuscular Hemoglobin Concent 34.3 Red Cell Distribution Width 12.9 Platelet Count 175 Mean Platelet Volume 10.4 Neutrophils % 68.2 Lymphocytes % 20.2 Monocytes % 9.8 Eosinophils % 1.3 Basophils % 0.3 Nucleated Red Blood Cells % 0.0 Neutrophils # 6.2 Lymphocytes # 1.8 Monocytes # 0.9 Eosinophils # 0.1 Basophils # 0.0 Nucleated Red Blood Cells # 0.0 Bedside Glucose 195 Medications Medications Current Medications Hydromorphone HCl (Dilaudid) 0.5 mg Q4H PRN IV PAIN Last administered on 03:49; Admin Dose 0.5 MG; Start 02/12/17 at 02:00 Acetaminophen/ Hydrocodone Bitart ([place] (5/325)) 1 tab Q6H PRN PO PAIN LEVEL 4 -6; Start 02/12/17 at 02:00 Ondansetron HCl (Zofran Inj) 4 mg Q6H PRN IV NAUSEA AND/OR VOMITING; Start at 02:00 Brimonidine/ Timolol (Combigan Oph) 1 drop BID BOTH EYES Last administered on 09:04; Admin Dose 1 DROP; Start 02/12/17 at 03:00 Hydrochlorothiazide (Hydrochlorothiazide) 25 mg DAILY PO Last administered on 09:04; Admin Dose 25 MG; Start 02/12/17 at 09:00 Levothyroxine Sodium (Synthroid) 88 mcg DAILY@06 PO Last administered on 06:39; Admin Dose 88 MCG; Start 02/12/17 at 06:00 Atorvastatin Calcium (Lipitor) 20 mg DAILY@21 PO Last administered on 21:05; Admin Dose 20 MG; Start 02/12/17 at 21:00 Diagnostic Test (Pha) (Accu-Chek) 1 ea 02 XX ; Start 02/13/17 at 02:00 Docusate Sodium (Colace) 100 mg Q12H PRN PO CONSTIPATION; Start 02/12/17 at 03: 00 Bisacodyl (Dulcolax) 5 mg DAILY PRN PO CONSTIPATION Last administered on 06:38; Admin Dose 5 MG; Start 02/12/17 at 03:00 Famotidine (Pepcid) 20 mg Q12 PO Last administered on 02/14/17 09:04; Admin Dose 20 MG; Start 02/12/17 at 03:00 Heparin Sodium (Porcine) (Heparin (5000 Units/0.5 ml)) 5,000 unit Q8 SC Last administered on 02/14/17 06:42; Admin Dose 5,000 UNIT; Start 02/12/17 at 06:00 Miscellaneous Information 1 ea NOTE XX ; Start 02/12/17 at 03:00 Glucose (Glutose) 15 gm Q15M PRN PO DECREASED GLUCOSE; Start 02/12/17 at 03:00 Glucose (Glutose) 22.5 gm Q15M PRN PO DECREASED GLUCOSE; Start 02/12/17 at 03: 00 Dextrose (D50w Syringe) 25 ml Q15M PRN IV DECREASED GLUCOSE; Start 02/12/17 at 03:00 Dextrose (D50w Syringe) 50 ml Q15M PRN IV DECREASED GLUCOSE; Start 02/12/17 at 03:00 Glucagon (Glucagen) 1 mg Q15M PRN IM DECREASED GLUCOSE; Start 02/12/17 at 03:00 Glucose (Glutose) 15 gm Q15M PRN BUCCAL DECREASED GLUCOSE; Start 02/12/17 at 03 :00 Citalopram Hydrobromide (Celexa) 20 mg DAILY@21 PO Last administered on 21:05; Admin Dose 20 MG; Start 02/12/17 at 21:00 NASIM GARIBAY MD February 14, 2017 11:04
--- NOTE | 2017-02-14 11:37 | RADRPT ---
PROCEDURE: CT LEFT ELBOW. CLINICAL INDICATION: Recent fall. Evaluate fracture. Prior surgery. TECHNIQUE: CT scan of the left elbow was performed on a multi -slice scanner. No IV contrast was administered. Coronal and sagittal reformatted images were obtained from the axial source images. The total exam DLP equals 1003.73 mGy-cm. The CDTI volume was 59.27 mGy. One or more of the following dose reduction techniques were used: - Automated exposure control. - Adjustment of the mA and/or kV according to patient size . - Use of iterative reconstruction technique. Images were reviewed on a high-resolution PACS workstation. COMPARISON: Plain film x-ray dated 02/11/2017 at x-ray dated 03/17/2015. FINDINGS: Between the examinations of 03/17/2015 and 02/11/2017, the patient underwent ORIF of the olecranon f racture. There is now an acute comminuted lateral condylar fracture, intra-articular, extending to the junction between the humeral trochlear and capitellum seen best on image 102 of series 200. Ther e is mild displacement. No recurrent olecranon fracture is seen. There is also a radial head fracture, intra-articular with sclerosis and we modeling at the fracture site. This is most likely chronic and preexisting. I do not deftly identify the radial head fract ure on the exam of 03/17/2015. No no radial or ulnar shaft fractures seen. IMPRESSION: 1. Acute comminuted intra-articular lateral condylar fracture extending to the junction between the trochlea and capitellum, with mild displacement. 2. 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 RPTAT: XX .Jason Whitfield MD, MD Date Time Electronically viewed and signed by .Jason Whitfield MD, on 02/14/2017 11:37 .T/
[2017-02-14 16:24] VITALS: BP 149/66; PULSE 65; RESP 18
[2017-02-14] MEDS: CITALOPRAM 20 MG TAB PO SCH (21:00)
[2017-02-14] MEDS: ATORVASTATIN 20 MG TAB PO SCH (21:00)
[2017-02-14 21:10] VITALS: BP 149/67; RESP 18
[2017-02-15] MEDS: HYDROmorphONE 1 MG/ML SYG IV PRN ×4 (01:25→22:22)
[2017-02-15] MEDS: ACCU-CHEK XX SCH (02:00)
[2017-02-15 05:08] LABS: ADD SCAN DIFF NO; BASOPHILS % 0.5 % (0.0-2.0); EOSINOPHILS # 0.2 10^3/ul (0.0-0.5); EOSINOPHILS % 2.9 % (0.0-7.0); HEMATOCRIT 35.9 % (37.0-47.0); HEMOGLOBIN 12.2 g/dl (12.0-16.0); LYMPHOCYTES # 2.4 10^3/ul (0.8-2.9); LYMPHOCYTES % 31.7 % (15.0-51.0); MEAN CORPUSCULAR VOLUME 88.4 fl (82.0-101.0); MEAN PLATELET VOLUME 9.8 fl (7.4-10.4); MONOCYTE # 0.8 10^3/ul (0.3-0.9); MONOCYTES % 11.1 % (0.0-11.0); NEUTROPHILS % 53.5 % (39.0-77.0); PLATELET COUNT 196 10^3/UL (140-415); RED BLOOD COUNT 4.06 10^6/ul (4.20-5.40); WHITE BLOOD COUNT 7.5 10^3/ul (4.8-10.8)
[2017-02-15 05:38] LABS: POTASSIUM 3.6 mmol/L (3.5-5.1)
[2017-02-15 05:41] LABS: CREATININE 0.92 mg/dl (0.44-1.00)
[2017-02-15] MEDS: LEVOTHYROXINE 88 MCG TAB PO SCH (06:26)
[2017-02-15] MEDS: HEPARIN 5,000 UNIT/0.5 ML VIAL SC SCH ×3 (06:29→21:30)
[2017-02-15 07:49] VITALS: BP 133/62; RESP 16
[2017-02-15] MEDS: FAMOTIDINE 20 MG TAB PO SCH ×2 (08:33→20:29)
[2017-02-15] MEDS: BRIMONIDINE 0.2%-TIMOLOL 0.5% 5ML OPH BOTH EYES SCH ×2 (08:34→20:30)
[2017-02-15] MEDS: HYDROCHLOROTHIAZIDE 25 MG TAB PO SCH (08:34)
[2017-02-15] MEDS: INSULIN ASPART [NOVOLOG] 3 ML PEN SC SCH ×4 (08:36→20:26)
--- NOTE | 2017-02-15 11:17 | PN ---
Date/Time of Note Date/Time of Note DATE: 02/15/17 TIME: 11:13 Assessment/Plan VTE Prophylaxis VTE Prophylaxis Intervention: SCD's Lines/Catheters IV Catheter Type (from Nrs): Saline Lock Urinary Cath still in place: Yes Reason Cath still needed: urinary retention Assessment/Plan Problems: (1) Left supracondylar humerus fracture Status: Acute Comment: Dr. Kaiser has seen her in consultation. Your follow-up CT scan to verify the anatomy and will give final recommendations and opinions regarding care. Qualifiers: Encounter type: initial encounter Fracture type: closed Qualified Code: S42.412A - Left supracondylar humerus fracture, closed, initial encounter (2) Closed left acetabular fracture Status: Acute Comment: Dr. Kaiser has seen her orthopedic consultation and will give recommendations about how to approach this. Qualifiers: Encounter type: initial encounter Sublocation of acetabulum: unspecified portion of acetabulum Fracture alignment: nondisplaced Qualified Code: S32.402A - Closed nondisplaced fracture of left acetabulum, unspecified portion of acetabulum, initial encounter (3) Diabetes mellitus type 2 in obese Status: Chronic Comment: Her control is not ideal. I am going to put her back on some of the oral agents she was on as an outpatient. Please note her outpatient regimen was Janumet 50-1000 twice daily; glimepiride 4 mg twice daily; pioglitazone 30 mg once a day (4) Obesity (BMI 30-39.9) Status: Chronic Comment: Calorie restriction diet (5) Hyperlipidemia Status: Chronic Comment: Remains on statin therapy Qualifiers: Hyperlipidemia type: pure hypercholesterolemia Qualified Code: E78.00 - Pure hypercholesterolemia (6) Hypothyroidism (acquired) Status: Chronic Comment: Continue levothyroxine replacement therapy (7) Frequent falls Status: Chronic Comment: She gone through balance therapy was actually doing well. However this is been an issue. This was a ground-level fall when she tripped on a hose in her yard. 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 Constitutional: no complaints (No fevers chills or sweats) Respiratory: no complaints Cardiovascular: no complaints Gastrointestinal: no complaints Genitourinary: no complaints Musculoskeletal: other (Pain at left hip and left arm) Neurologic: no complaints Exam/Review of Systems Vital Signs Vitals Vital Signs Date Time Temp Pulse Resp B/P Pulse Ox O2 Delivery O2 Flow Rate FiO2 02/15/17 07:49 98.6 64 16 133/62 99 02/14/17 16:24 Room Air Intake and Output 02/14/17 02/14/17 02/15/17 15:00 23:00 07:00 Intake Total 1000 ml 480 ml Output Total 1800 ml 700 ml Balance -800 ml -220 ml Exam Constitutional: alert, oriented Neck: non-tender, supple Respiratory: clear to auscultation, normal air movement Cardiovascular: nl pulses, regular rate and rhythm Gastrointestinal: nl liver, spleen, non-tender, soft Results Result Diagram: 02/15/17 0432 02/15/17 0432 Results 24 hrs Laboratory Tests Test 02/14/17 12:33 02/14/17 17:31 02/14/17 21:06 02/15/17 02:35 Bedside Glucose 259 H 213 264 H 203 Test 02/15/17 04:32 02/15/17 08:01 White Blood Count 7.5 Red Blood Count 4.06 L Hemoglobin 12.2 Hematocrit 35.9 L Mean Corpuscular Volume 88.4 Mean Corpuscular Hemoglobin 30.0 Mean Corpuscular Hemoglobin Concent 34.0 Red Cell Distribution Width 13.0 Platelet Count 196 Mean Platelet Volume 9.8 Neutrophils % 53.5 Lymphocytes % 31.7 Monocytes % 11.1 H Eosinophils % 2.9 Basophils % 0.5 Nucleated Red Blood Cells % 0.0 Neutrophils # 4.0 Lymphocytes # 2.4 Monocytes # 0.8 Eosinophils # 0.2 Basophils # 0.0 Nucleated Red Blood Cells # 0.0 Sodium Level 136 Potassium Level 3.6 Chloride Level 96 L Carbon Dioxide Level 30 Anion Gap 14 Blood Urea Nitrogen 17 Creatinine 0.92 Glucose Level 200 Calcium Level 10.0 Bedside Glucose 222 H Medications Medications Current Medications Hydromorphone HCl (Dilaudid) 0.5 mg Q4H PRN IV PAIN Last administered on t 08:30; Admin Dose 0.5 MG; Start 02/12/17 at 02:00 Acetaminophen/ Hydrocodone Bitart ([place] (5/325)) 1 tab Q6H PRN PO PAIN LEVEL 4 -6; Start 02/12/17 at 02:00 Ondansetron HCl (Zofran Inj) 4 mg Q6H PRN IV NAUSEA AND/OR VOMITING; Start at 02:00 Brimonidine/ Timolol (Combigan Oph) 1 drop BID BOTH EYES Last administered on 08:34; Admin Dose 1 DROP; Start 02/12/17 at 03:00 Hydrochlorothiazide (Hydrochlorothiazide) 25 mg DAILY PO Last administered on 08:34; Admin Dose 25 MG; Start 02/12/17 at 09:00 Levothyroxine Sodium (Synthroid) 88 mcg DAILY@06 PO Last administered on 06:26; Admin Dose 88 MCG; Start 02/12/17 at 06:00 Atorvastatin Calcium (Lipitor) 20 mg DAILY@21 PO Last administered on 21:00; Admin Dose 20 MG; Start 02/12/17 at 21:00 Diagnostic Test (Pha) (Accu-Chek) 1 ea 02 XX ; Start 02/13/17 at 02:00 Docusate Sodium (Colace) 100 mg Q12H PRN PO CONSTIPATION Last administered on 18:02; Admin Dose 100 MG; Start 02/12/17 at 03:00 Bisacodyl (Dulcolax) 5 mg DAILY PRN PO CONSTIPATION Last administered on 06:38; Admin Dose 5 MG; Start 02/12/17 at 03:00 Famotidine (Pepcid) 20 mg Q12 PO Last administered on 02/15/17 08:33; Admin Dose 20 MG; Start 02/12/17 at 03:00 Heparin Sodium (Porcine) (Heparin (5000 Units/0.5 ml)) 5,000 unit Q8 SC Last administered on 02/15/17 06:29; Admin Dose 5,000 UNIT; Start 02/12/17 at 06:00 Miscellaneous Information 1 ea NOTE XX ; Start 02/12/17 at 03:00 Glucose (Glutose) 15 gm Q15M PRN PO DECREASED GLUCOSE; Start 02/12/17 at 03:00 Glucose (Glutose) 22.5 gm Q15M PRN PO DECREASED GLUCOSE; Start 02/12/17 at 03: 00 Dextrose (D50w Syringe) 25 ml Q15M PRN IV DECREASED GLUCOSE; Start 02/12/17 at 03:00 Dextrose (D50w Syringe) 50 ml Q15M PRN IV DECREASED GLUCOSE; Start 02/12/17 at 03:00 Glucagon (Glucagen) 1 mg Q15M PRN IM DECREASED GLUCOSE; Start 02/12/17 at 03:00 Glucose (Glutose) 15 gm Q15M PRN BUCCAL DECREASED GLUCOSE; Start 02/12/17 at 03 :00 Citalopram Hydrobromide (Celexa) 20 mg DAILY@21 PO Last administered on t 21:00; Admin Dose 20 MG; Start 02/12/17 at 21:00 Linagliptin (Tradjenta) 5 mg DAILY PO ; Start 02/15/17 at 11:30; Status LUTHER BOBBY MD February 15, 2017 11:17
[2017-02-15] MEDS ORDERED: BISACODYL 10 MG SUPP PR PRN (12:30)
[2017-02-15] MEDS: LINAGLIPTIN 5 MG TABLET PO SCH (12:48)
--- NOTE | 2017-02-15 16:33 | CONS ---
DATE OF ADMISSION: 02/11/2017 DATE OF CONSULTATION: 02/14/2017 TYPE OF CONSULTATION: Orthopedic Surgical HISTORY OF PRESENT ILLNESS: The patient is a 76-year-old left-handed female who was admitted on , when she came to the emergency room complaining of pain involving her left elbow and left h ip. She obviously had a ground-level fall after tripping over a garden hose landing on her left carlos e. She did not have any evidence of head injury, but initial evaluation in the emergency room revea led the presence of fracture involving left elbow and left hip. PAST MEDICAL HISTORY: She is known to have diabetes mellitus, hyperlipidemia, glaucoma and anxiety. 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 Of interest is that she pascal d an injury involving her left elbow in the past, in the form of a fracture of the olecranon process . The initial surgery was not successful with a nonunion and she had to have a second open reductio n and internal fixation. PHYSICAL EXAMINATION: My examination revealed a 76-year-old female who was not in any acute pain. Her left elbow was immobilized in a long arm posterior splint. There were no signs of neurovascular compromise involving the left hand or left upper extremity. There was no unusual shortening or abn ormal rotation of the left lower extremity compared to the right lower extremity. However, attempte d range of motion of the left hip was provoking severe pain. DIAGNOSTIC STUDIES: X-rays of the left elbow revealed the presence of fracture involving the latera l epicondyle of the left elbow. There is possible extension into the joint; however, this displacem ent seems to be minimal. The CT scan of the pelvis is showing a fracture involving the acetabulum. Alignment is satisfactory without much displacement. DIAGNOSTIC IMPRESSION: 1. Acetabular fracture of the left hip in acceptable alignment with minimal displacement. 2. Fracture involving the lateral condyle of the humerus at the left elbow in acceptable alignment with minimal displacement. 3. Fracture of the olecranon process of the left elbow, status post repeated open reduction interna l fixation. RECOMMENDATIONS FOR MANAGEMENT. 1. For the acetabular fracture of the left hip, which is in acceptable alignment, she should be christopher ated nonsurgically with no weightbearing and less range of motion of the left hip if possible for 6 to 8 weeks. 2. For the lateral condylar fracture of the left elbow, which seems to be in acceptable alignment, she should be treated conservatively with immobilization in a cast or splint. Nonsurgical treatment of the left elbow is especially attractive because of the history of previous [address] sc an of the left elbow has been ordered in order to further clarify the extent and scope of the fractu re. She may need special consideration for nursing care because of the combination of upper and low er extremity trauma, which needs a period of nonweightbearing up to about 6 weeks. Dictated By: GLADYS PEPPER/BATSHEVA Conf#: [id number] DID#: [id number]
[2017-02-15] MEDS: metFORMIN 500 MG TAB PO SCH (18:23)
[2017-02-15] MEDS: CITALOPRAM 20 MG TAB PO SCH (20:29)
[2017-02-15] MEDS: ATORVASTATIN 20 MG TAB PO SCH (20:29)
[2017-02-15 20:40] VITALS: BP 136/62; PULSE 73; RESP 18
[2017-02-15 20:41] VITALS: BP 111/54; RESP 16
[2017-02-16] MEDS: ACCU-CHEK XX SCH (02:00)
[2017-02-16] MEDS: LEVOTHYROXINE 88 MCG TAB PO SCH (05:54)
[2017-02-16] MEDS: HEPARIN 5,000 UNIT/0.5 ML VIAL SC SCH ×3 (05:55→21:19)
[2017-02-16] MEDS: HYDROmorphONE 1 MG/ML SYG IV PRN ×3 (08:00→21:23)
[2017-02-16 08:32] VITALS: BP 139/69; RESP 19
[2017-02-16] MEDS: FAMOTIDINE 20 MG TAB PO SCH ×2 (08:35→21:12)
[2017-02-16] MEDS: LINAGLIPTIN 5 MG TABLET PO SCH (08:35)
[2017-02-16] MEDS: HYDROCHLOROTHIAZIDE 25 MG TAB PO SCH (08:36)
[2017-02-16] MEDS: BRIMONIDINE 0.2%-TIMOLOL 0.5% 5ML OPH BOTH EYES SCH ×2 (08:36→21:12)
[2017-02-16] MEDS: metFORMIN 500 MG TAB PO SCH ×2 (08:36→17:51)
[2017-02-16] MEDS: INSULIN ASPART [NOVOLOG] 3 ML PEN SC SCH ×4 (08:41→21:00)
[2017-02-16] MEDS: HYDROCODONE/APAP (5/325) TAB PO PRN (09:41)
--- NOTE | 2017-02-16 13:52 | PN ---
Date/Time of Note Date/Time of Note DATE: 02/16/17 TIME: 13:48 Assessment/Plan VTE Prophylaxis VTE Prophylaxis Intervention: heparin Lines/Catheters [facility] Saline Lock Urinary Cath still in place: Yes Reason Cath still needed: skin wounds contaminated by urine Assessment/Plan Problems: (1) Terrifying hypnagogic hallucinations Status: Acute Comment: After use of Dilaudid patient had this last night. This is self- limited issue have explained this to the patient. (2) Osteoporosis Status: Chronic Comment: Noted. Once she starts healing should actually be an appropriate candidate for consideration of the usage of Forteo 20 mg a day for 18 month Qualifiers: Osteoporosis type: age-related Presence of current pathological fracture: with current pathological fracture Encounter type: initial encounter Qualified Code: M80.00XA - Age-related osteoporosis with current pathological fracture, initial encounter (3) Hyperlipidemia Status: Chronic Comment: Continue statin therapy Qualifiers: Hyperlipidemia type: pure hypercholesterolemia Qualified Code: E78.00 - Pure hypercholesterolemia (4) Obesity (BMI 30-39.9) Status: Chronic Comment: Noted calorie restriction diet (5) Diabetes mellitus type 2 in obese Status: Chronic Comment: Her control is inadequate will bring more of her outpatient medications online which should bring her down into a reasonable range (6) Hypothyroidism (acquired) Status: Chronic Comment: Continue outpatient replacement therapy (7) Closed left acetabular fracture Status: Acute Comment: As per Dr. Kaiser Qualifiers: Encounter type: initial encounter Sublocation of acetabulum: unspecified portion of acetabulum Fracture alignment: nondisplaced Qualified Code: S32.402A - Closed nondisplaced fracture of left acetabulum, unspecified portion of acetabulum, initial encounter (8) Left supracondylar humerus fracture Status: Acute Comment: As per Dr. Kaiser Qualifiers: Encounter type: initial encounter Fracture type: closed Qualified Code: S42.412A - Left supracondylar humerus fracture, closed, initial encounter Subjective 24 Hr Interval Summary Free Text/Dictation Patient reports hypnagogic hallucinations last night better today Constitutional: no complaints Respiratory: no complaints Cardiovascular: no complaints Gastrointestinal: no complaints Genitourinary: no complaints Exam/Review of Systems Vital Signs Vitals Vital Signs Date Time Temp Pulse Resp B/P Pulse Ox O2 Delivery O2 Flow Rate FiO2 02/16/17 08:32 98.0 69 19 139/69 98 02/14/17 16:24 Room Air Intake and Output 02/15/17 02/15/17 02/16/17 15:00 23:00 07:00 Intake Total 808 ml 500 ml Output Total 1200 ml 900 ml Balance -392 ml -400 ml Exam Constitutional: alert, oriented Neck: non-tender, supple Respiratory: clear to auscultation, normal air movement Cardiovascular: nl pulses, regular rate and rhythm Gastrointestinal: nl liver, spleen, non-tender, soft Results Result Diagram: 02/15/17 0432 02/15/17 0432 Results 24 hrs Laboratory Tests Test 02/15/17 17:41 02/15/17 20:22 02/16/17 02:07 02/16/17 08:34 Bedside Glucose 195 249 H 195 227 H Test 02/16/17 12:23 Bedside Glucose 272 H Medications Medications Current Medications Hydromorphone HCl (Dilaudid) 0.5 mg Q4H PRN IV PAIN Last administered on 08:00; Admin Dose 0.5 MG; Start 02/12/17 at 02:00 Acetaminophen/ Hydrocodone Bitart ([place] (5/325)) 1 tab Q6H PRN PO PAIN LEVEL 4 -6 Last administered on 02/16/17 09:41; Admin Dose 1 TAB; Start 02/12/17 at 02: 00 Ondansetron HCl (Zofran Inj) 4 mg Q6H PRN IV NAUSEA AND/OR VOMITING Last administered on 02/16/17 09:42; Admin Dose 4 MG; Start 02/12/17 at 02:00 Brimonidine/ Timolol (Combigan Oph) 1 drop BID BOTH EYES Last administered on 08:36; Admin Dose 1 DROP; Start 02/12/17 at 03:00 Hydrochlorothiazide (Hydrochlorothiazide) 25 mg DAILY PO Last administered on 08:36; Admin Dose 25 MG; Start 02/12/17 at 09:00 Levothyroxine Sodium (Synthroid) 88 mcg DAILY@06 PO Last administered on 05:54; Admin Dose 88 MCG; Start 02/12/17 at 06:00 Atorvastatin Calcium (Lipitor) 20 mg DAILY@21 PO Last administered on 20:29; Admin Dose 20 MG; Start 02/12/17 at 21:00 Diagnostic Test (Pha) (Accu-Chek) 1 ea 02 XX ; Start 02/13/17 at 02:00 Docusate Sodium (Colace) 100 mg Q12H PRN PO CONSTIPATION Last administered on 18:02; Admin Dose 100 MG; Start 02/12/17 at 03:00 Bisacodyl (Dulcolax) 5 mg DAILY PRN PO CONSTIPATION Last administered on 06:38; Admin Dose 5 MG; Start 02/12/17 at 03:00 Famotidine (Pepcid) 20 mg Q12 PO Last administered on 02/16/17 08:35; Admin Dose 20 MG; Start 02/12/17 at 03:00 Heparin Sodium (Porcine) (Heparin (5000 Units/0.5 ml)) 5,000 unit Q8 SC Last administered on 02/16/17 05:55; Admin Dose 5,000 UNIT; Start 02/12/17 at 06:00 Miscellaneous Information 1 ea NOTE XX ; Start 02/12/17 at 03:00 Glucose (Glutose) 15 gm Q15M PRN PO DECREASED GLUCOSE; Start 02/12/17 at 03:00 Glucose (Glutose) 22.5 gm Q15M PRN PO DECREASED GLUCOSE; Start 02/12/17 at 03: 00 Dextrose (D50w Syringe) 25 ml Q15M PRN IV DECREASED GLUCOSE; Start 02/12/17 at 03:00 Dextrose (D50w Syringe) 50 ml Q15M PRN IV DECREASED GLUCOSE; Start 02/12/17 at 03:00 Glucagon (Glucagen) 1 mg Q15M PRN IM DECREASED GLUCOSE; Start 02/12/17 at 03:00 Glucose (Glutose) 15 gm Q15M PRN BUCCAL DECREASED GLUCOSE; Start 02/12/17 at 03 :00 Citalopram Hydrobromide (Celexa) 20 mg DAILY@21 PO Last administered on 20:29; Admin Dose 20 MG; Start 02/12/17 at 21:00 Linagliptin (Tradjenta) 5 mg DAILY PO Last administered on 02/16/17 08:35; Admin Dose 5 MG; Start 02/15/17 at 11:30 Bisacodyl (Dulcolax Supp) 10 mg DAILY PRN CO CONSTIPATION Last administered on 02/15/17t 13:44; Admin Dose 10 MG; Start 02/15/17 at 12:30 Pioglitazone HCl (Actos) 45 mg DAILY PO ; Start 02/16/17 at 14:00 LUTHER TAYLOR MD February 16, 2017 13:51
[2017-02-16] MEDS: PIOGLITAZONE 45 MG TAB PO SCH (14:47)
[2017-02-16] MEDS: REPAGLINIDE 1 MG TAB PO SCH (17:50)
[2017-02-16] MEDS: GABAPENTIN 300 MG CAP PO SCH ×2 (17:50→21:12)
[2017-02-16 20:32] VITALS: BP 134/60; RESP 18
[2017-02-16] MEDS: CITALOPRAM 20 MG TAB PO SCH (21:12)
[2017-02-16] MEDS: ATORVASTATIN 20 MG TAB PO SCH (21:12)
[2017-02-17] MEDS: ACCU-CHEK XX SCH (02:00)
[2017-02-17] MEDS: GABAPENTIN 300 MG CAP PO SCH ×3 (05:37→21:56)
[2017-02-17] MEDS: LEVOTHYROXINE 88 MCG TAB PO SCH (05:37)
[2017-02-17] MEDS: HEPARIN 5,000 UNIT/0.5 ML VIAL SC SCH ×3 (05:43→21:59)
[2017-02-17] MEDS: INSULIN ASPART [NOVOLOG] 3 ML PEN SC SCH ×4 (08:03→20:39)
[2017-02-17 08:09] VITALS: BP 121/57; RESP 18
[2017-02-17] MEDS: metFORMIN 500 MG TAB PO SCH ×2 (08:09→17:53)
[2017-02-17] MEDS: REPAGLINIDE 1 MG TAB PO SCH ×3 (08:09→17:53)
[2017-02-17] MEDS: LINAGLIPTIN 5 MG TABLET PO SCH (08:10)
[2017-02-17] MEDS: PIOGLITAZONE 45 MG TAB PO SCH (08:10)
[2017-02-17] MEDS: FAMOTIDINE 20 MG TAB PO SCH ×2 (08:13→20:33)
[2017-02-17] MEDS: HYDROCHLOROTHIAZIDE 25 MG TAB PO SCH (08:13)
[2017-02-17] MEDS: BRIMONIDINE 0.2%-TIMOLOL 0.5% 5ML OPH BOTH EYES SCH ×2 (08:13→20:34)
--- NOTE | 2017-02-17 15:21 | PN ---
Date/Time of Note Date/Time of Note DATE: 02/17/17 TIME: 15:17 Assessment/Plan VTE Prophylaxis VTE Prophylaxis Intervention: heparin Lines/Catheters IV Catheter Type (from Nrsg): Saline Lock Assessment/Plan Chief Complaint/Hosp Course 1. Acute left acetabular fracture No surgical intervention indicated at this time, recommendation is for nonweightbearing at this time for 6 weeks 2. Left humeral fracture Conservative management, no surgery indicated at this time 3. History of hypothyroidism 4. History of hyperlipidemia Prophylaxis: Heparin Discharge planning: Patient will need [facility] placement, caseworker intake aware Problems: Subjective 24 Hr Interval Summary Constitutional: no complaints Exam/Review of Systems Vital Signs Vitals Vital Signs Date Time Temp Pulse Resp B/P Pulse Ox O2 Delivery O2 Flow Rate FiO2 02/17/17 08:09 98.5 64 18 121/57 95 02/14/17 16:24 Room Air Intake and Output 02/16/17 02/16/17 02/17/17 15:00 23:00 07:00 Intake Total 940 ml 540 ml Output Total 1300 ml 900 ml Balance -360 ml -360 ml Exam Constitutional: alert Respiratory: clear to auscultation Cardiovascular: regular rate and rhythm Gastrointestinal: soft, No distended Musculoskeletal: nl extremities to inspection Results Result Diagram: 02/15/17 0432 02/15/17 0432 Results 24 hrs Laboratory Tests Test 02/16/17 17:49 02/16/17 21:11 02/17/17 07:33 02/17/17 12:03 Bedside Glucose 141 144 209 333 H Test 02/17/17 12:17 Bedside Glucose 305 H Medications Medications Current Medications Hydromorphone HCl (Dilaudid) 0.5 mg Q4H PRN IV PAIN Last administered on 21:23; Admin Dose 0.5 MG; Start 02/12/17 at 02:00 Acetaminophen/ Hydrocodone Bitart ([place] (5/325)) 1 tab Q6H PRN PO PAIN LEVEL 4 -6 Last administered on 02/16/17 09:41; Admin Dose 1 TAB; Start 02/12/17 at 02: 00 Ondansetron HCl (Zofran Inj) 4 mg Q6H PRN IV NAUSEA AND/OR VOMITING Last administered on 02/16/17 09:42; Admin Dose 4 MG; Start 02/12/17 at 02:00 Brimonidine/ Timolol (Combigan Oph) 1 drop BID BOTH EYES Last administered on 08:13; Admin Dose 1 DROP; Start 02/12/17 at 03:00 Hydrochlorothiazide (Hydrochlorothiazide) 25 mg DAILY PO Last administered on 08:13; Admin Dose 25 MG; Start 02/12/17 at 09:00 Levothyroxine Sodium (Synthroid) 88 mcg DAILY@06 PO Last administered on 05:37; Admin Dose 88 MCG; Start 02/12/17 at 06:00 Atorvastatin Calcium (Lipitor) 20 mg DAILY@21 PO Last administered on 21:12; Admin Dose 20 MG; Start 02/12/17 at 21:00 Diagnostic Test (Pha) (Accu-Chek) 1 ea 02 XX ; Start 02/13/17 at 02:00 Docusate Sodium (Colace) 100 mg Q12H PRN PO CONSTIPATION Last administered on 18:02; Admin Dose 100 MG; Start 02/12/17 at 03:00 Bisacodyl (Dulcolax) 5 mg DAILY PRN PO CONSTIPATION Last administered on 06:38; Admin Dose 5 MG; Start 02/12/17 at 03:00 Famotidine (Pepcid) 20 mg Q12 PO Last administered on 02/17/17 08:13; Admin Dose 20 MG; Start 02/12/17 at 03:00 Heparin Sodium (Porcine) (Heparin (5000 Units/0.5 ml)) 5,000 unit Q8 SC Last administered on 02/17/17 14:35; Admin Dose 5,000 UNIT; Start 02/12/17 at 06:00 Miscellaneous Information 1 ea NOTE XX ; Start 02/12/17 at 03:00 Glucose (Glutose) 15 gm Q15M PRN PO DECREASED GLUCOSE; Start 02/12/17 at 03:00 Glucose (Glutose) 22.5 gm Q15M PRN PO DECREASED GLUCOSE; Start 02/12/17 at 03: 00 Dextrose (D50w Syringe) 25 ml Q15M PRN IV DECREASED GLUCOSE; Start 02/12/17 at 03:00 Dextrose (D50w Syringe) 50 ml Q15M PRN IV DECREASED GLUCOSE; Start 02/12/17 at 03:00 Glucagon (Glucagen) 1 mg Q15M PRN IM DECREASED GLUCOSE; Start 02/12/17 at 03:00 Glucose (Glutose) 15 gm Q15M PRN BUCCAL DECREASED GLUCOSE; Start 02/12/17 at 03 :00 Citalopram Hydrobromide (Celexa) 20 mg DAILY@21 PO Last administered on 21:12; Admin Dose 20 MG; Start 02/12/17 at 21:00 Linagliptin (Tradjenta) 5 mg DAILY PO Last administered on 02/17/17 08:10; Admin Dose 5 MG; Start 02/15/17 at 11:30 Bisacodyl (Dulcolax Supp) 10 mg DAILY PRN [place] CONSTIPATION Last administered on 02/15/17 13:44; Admin Dose 10 MG; Start 02/15/17 at 12:30 Pioglitazone HCl (Actos) 45 mg DAILY PO Last administered on 02/17/17 08:10; Admin Dose 45 MG; Start 02/16/17 at 14:00 Gabapentin (Neurontin) 300 mg Q8 PO Last administered on 02/17/17 14:33; Admin Dose 300 MG; Start 02/16/17 at 16:00 TARAN MADRIGAL February 17, 2017 15:21
[2017-02-17] MEDS: ATORVASTATIN 20 MG TAB PO SCH (20:33)
[2017-02-17] MEDS: SENNA TAB PO SCH (20:33)
[2017-02-17] MEDS: CITALOPRAM 20 MG TAB PO SCH (20:33)
[2017-02-17] MEDS: INSULIN GLARGINE [LANtus] 3 ML PEN SC SCH (20:43)
[2017-02-17 20:44] VITALS: BP 132/58; RESP 18
[2017-02-17] MEDS: HYDROCODONE/APAP (5/325) TAB PO PRN (21:56)
[2017-02-18] MEDS: ACCU-CHEK XX SCH (02:00)
[2017-02-18 05:47] LABS: POTASSIUM 3.6 mmol/L (3.5-5.1)
[2017-02-18 05:48] LABS: CALCIUM 10.6 mg/dl (8.4-10.2); CREATININE 0.97 mg/dl (0.44-1.00)
[2017-02-18] MEDS: GABAPENTIN 300 MG CAP PO SCH ×3 (06:06→21:40)
[2017-02-18] MEDS: HEPARIN 5,000 UNIT/0.5 ML VIAL SC SCH ×3 (06:08→21:41)
[2017-02-18 08:18] VITALS: BP 139/62; RESP 16
[2017-02-18] MEDS: REPAGLINIDE 1 MG TAB PO SCH ×3 (08:25→18:34)
[2017-02-18] MEDS: LEVOTHYROXINE 88 MCG TAB PO SCH (08:25)
[2017-02-18] MEDS: metFORMIN 500 MG TAB PO SCH ×2 (08:25→18:34)
[2017-02-18] MEDS: PIOGLITAZONE 45 MG TAB PO SCH (08:59)
[2017-02-18] MEDS: SENNA TAB PO SCH ×2 (08:59→20:20)
[2017-02-18] MEDS: HYDROCHLOROTHIAZIDE 25 MG TAB PO SCH (08:59)
[2017-02-18] MEDS: LINAGLIPTIN 5 MG TABLET PO SCH (08:59)
[2017-02-18] MEDS: FAMOTIDINE 20 MG TAB PO SCH ×2 (08:59→20:20)
[2017-02-18] MEDS: BRIMONIDINE 0.2%-TIMOLOL 0.5% 5ML OPH BOTH EYES SCH ×2 (09:32→20:20)
[2017-02-18] MEDS: INSULIN ASPART [NOVOLOG] 3 ML PEN SC SCH ×4 (09:35→20:26)
--- NOTE | 2017-02-18 11:33 | PN ---
Date/Time of Note Date/Time of Note DATE: 02/18/17 TIME: 11:32 Assessment/Plan VTE Prophylaxis VTE Prophylaxis Intervention: heparin Lines/Catheters IV Catheter Type (from Nrsg): Saline Lock Assessment/Plan Chief Complaint/Hosp Course 1. Acute left acetabular fracture No surgical intervention indicated at this time, recommendation is for nonweightbearing at this time for 6 weeks, OT consult appreciated 2. Left humeral fracture Conservative management, no surgery indicated at this time 3. History of hypothyroidism 4. History of hyperlipidemia Prophylaxis: Heparin Discharge planning: Patient will need skilled nursing placement, case repairer aware Problems: Subjective 24 Hr Interval Summary Constitutional: no complaints Exam/Review of Systems Vital Signs Vitals Vital Signs Date Time Temp Pulse Resp B/P Pulse Ox O2 Delivery O2 Flow Rate FiO2 02/18/17 08:18 97.5 70 16 139/62 94 02/14/17 16:24 Room Air Intake and Output 02/17/17 02/17/17 02/18/17 15:00 23:00 07:00 Intake Total 580 ml Output Total 1000 ml Balance -420 ml Exam Constitutional: alert, oriented Respiratory: clear to auscultation Cardiovascular: regular rate and rhythm Gastrointestinal: soft, No distended Musculoskeletal: nl extremities to inspection Results Result Diagram: 02/15/17 0432 02/18/17 0420 Results 24 hrs Laboratory Tests Test 02/17/17 12:03 02/17/17 12:17 02/17/17 17:50 02/17/17 20:38 Bedside Glucose 333 H 305 H 115 130 Test 02/18/17 04:20 02/18/17 08:57 Sodium Level 136 Potassium Level 3.6 Chloride Level 97 Carbon Dioxide Level 28 Anion Gap 15 Blood Urea Nitrogen 25 H Creatinine 0.97 Glucose Level 142 Calcium Level 10.6 H Bedside Glucose 168 Medications Medications Current Medications Hydromorphone HCl (Dilaudid) 0.5 mg Q4H PRN IV PAIN Last administered on 21:23; Admin Dose 0.5 MG; Start 02/12/17 at 02:00 Acetaminophen/ Hydrocodone Bitart ([place] (5/325)) 1 tab Q6H PRN PO PAIN LEVEL 4 -6 Last administered on 02/17/17 21:56; Admin Dose 1 TAB; Start 02/12/17 at 02: 00 Ondansetron HCl (Zofran Inj) 4 mg Q6H PRN IV NAUSEA AND/OR VOMITING Last administered on 02/16/17 09:42; Admin Dose 4 MG; Start 02/12/17 at 02:00 Brimonidine/ Timolol (Combigan Oph) 1 drop BID BOTH EYES Last administered on 09:32; Admin Dose 1 DROP; Start 02/12/17 at 03:00 Hydrochlorothiazide (Hydrochlorothiazide) 25 mg DAILY PO Last administered on 08:59; Admin Dose 25 MG; Start 02/12/17 at 09:00 Levothyroxine Sodium (Synthroid) 88 mcg DAILY@06 PO Last administered on 08:25; Admin Dose 88 MCG; Start 02/12/17 at 06:00 Atorvastatin Calcium (Lipitor) 20 mg DAILY@21 PO Last administered on 20:33; Admin Dose 20 MG; Start 02/12/17 at 21:00 Diagnostic Test (Pha) (Accu-Chek) 1 ea 02 XX ; Start 02/13/17 at 02:00 Docusate Sodium (Colace) 100 mg Q12H PRN PO CONSTIPATION Last administered on 18:02; Admin Dose 100 MG; Start 02/12/17 at 03:00 Bisacodyl (Dulcolax) 5 mg DAILY PRN PO CONSTIPATION Last administered on 06:38; Admin Dose 5 MG; Start 02/12/17 at 03:00 Famotidine (Pepcid) 20 mg Q12 PO Last administered on 02/18/17 08:59; Admin Dose 20 MG; Start 02/12/17 at 03:00 Heparin Sodium (Porcine) (Heparin (5000 Units/0.5 ml)) 5,000 unit Q8 SC Last administered on 02/18/17 06:08; Admin Dose 5,000 UNIT; Start 02/12/17 at 06:00 Miscellaneous Information 1 ea NOTE XX ; Start 02/12/17 at 03:00 Glucose (Glutose) 15 gm Q15M PRN PO DECREASED GLUCOSE; Start 02/12/17 at 03:00 Glucose (Glutose) 22.5 gm Q15M PRN PO DECREASED GLUCOSE; Start 02/12/17 at 03: 00 Dextrose (D50w Syringe) 25 ml Q15M PRN IV DECREASED GLUCOSE; Start 02/12/17 at 03:00 Dextrose (D50w Syringe) 50 ml Q15M PRN IV DECREASED GLUCOSE; Start 02/12/17 at 03:00 Glucagon (Glucagen) 1 mg Q15M PRN IM DECREASED GLUCOSE; Start 02/12/17 at 03:00 Glucose (Glutose) 15 gm Q15M PRN BUCCAL DECREASED GLUCOSE; Start 02/12/17 at 03 :00 Citalopram Hydrobromide (Celexa) 20 mg DAILY@21 PO Last administered on 20:33; Admin Dose 20 MG; Start 02/12/17 at 21:00 Linagliptin (Tradjenta) 5 mg DAILY PO Last administered on 02/18/17 08:59; Admin Dose 5 MG; Start 02/15/17 at 11:30 Bisacodyl (Dulcolax Supp) 10 mg DAILY PRN [place] CONSTIPATION Last administered on 02/15/17 13:44; Admin Dose 10 MG; Start 02/15/17 at 12:30 Pioglitazone HCl (Actos) 45 mg DAILY PO Last administered on 02/18/17 08:59; Admin Dose 45 MG; Start 02/16/17 at 14:00 Gabapentin (Neurontin) 300 mg Q8 PO Last administered on 02/18/17 06:06; Admin Dose 300 MG; Start 02/16/17 at 16:00 Insulin Glargine (Lantus) 10 unit DAILY@20 SC Last administered on 02/17/17 20 :43; Admin Dose 10 UNIT; Start 02/17/17 at 20:00 Senna (Senokot) 1 tab BID PO Last administered on 02/18/17 08:59; Admin Dose 1 TAB; Start 02/17/17 at 21:00 TARAN MADRIGAL February 18, 2017 11:33
[2017-02-18 16:52] LABS: ADD UMIC YES; URINE BILIRUBIN (Dip) 2+ (NEGATIVE); URINE BLOOD (Dip) 3+ (NEGATIVE); URINE GLUCOSE (Dip) NEGATIVE (NEGATIVE); URINE KETONES (Dip) TRACE (NEGATIVE); URINE LEUKOCYTE ESTERASE (Dip) 3+ (NEGATIVE); URINE NITRITE (Dip) NEGATIVE (NEGATIVE); URINE TOTAL PROTEIN (Dip) 4+ (NEGATIVE); URINE UROBILINOGEN (Dip) 2.0 E.U./dL (0.1-1.0)
[2017-02-18 17:03] LABS: ICTOTEST NEGATIVE (NEGATIVE); SQUAMOUS EPITHELIAL CELL,UR FEW; URINE COLOR RED (YELLOW); URINE RBCS >200 /HPF (0)
[2017-02-18 17:04] LABS: BACTERIA,URINE MANY
[2017-02-18] MEDS ORDERED: CEFTRIAXONE 1 GM/50 ML (PMX) 50 ML IVPB SCH (17:30)
[2017-02-18] MEDS: ATORVASTATIN 20 MG TAB PO SCH (20:20)
[2017-02-18] MEDS: CITALOPRAM 20 MG TAB PO SCH (20:20)
[2017-02-18] MEDS: INSULIN GLARGINE [LANtus] 3 ML PEN SC SCH (20:22)
[2017-02-18 20:37] VITALS: BP 140/87; RESP 20
[2017-02-18] MEDS: HYDROmorphONE 1 MG/ML SYG IV PRN (21:40)
[2017-02-19] MEDS: ACCU-CHEK XX SCH (02:00)
[2017-02-19] MEDS: GABAPENTIN 300 MG CAP PO SCH ×2 (05:16→09:41)
[2017-02-19] MEDS: LEVOTHYROXINE 88 MCG TAB PO SCH (05:16)
[2017-02-19] MEDS: HEPARIN 5,000 UNIT/0.5 ML VIAL SC SCH (05:17)
[2017-02-19 07:45] VITALS: BP 155/69; RESP 19
[2017-02-19] MEDS: INSULIN ASPART [NOVOLOG] 3 ML PEN SC SCH ×2 (08:30→12:36)
[2017-02-19] MEDS: REPAGLINIDE 1 MG TAB PO SCH ×2 (09:41→12:39)
[2017-02-19] MEDS: BRIMONIDINE 0.2%-TIMOLOL 0.5% 5ML OPH BOTH EYES SCH (09:41)
[2017-02-19] MEDS: FAMOTIDINE 20 MG TAB PO SCH (09:41)
[2017-02-19] MEDS: SENNA TAB PO SCH (09:41)
[2017-02-19] MEDS: PIOGLITAZONE 45 MG TAB PO SCH (09:41)
[2017-02-19] MEDS: HYDROCHLOROTHIAZIDE 25 MG TAB PO SCH (09:42)
[2017-02-19] MEDS: LINAGLIPTIN 5 MG TABLET PO SCH (09:42)
[2017-02-19] MEDS: metFORMIN 500 MG TAB PO SCH (09:42)
[2017-02-19] MEDS ORDERED: CIPR500T4 PO (11:10)
[2017-02-19] MEDS ORDERED: HYDR-3498 PO (11:10)
[2017-02-19] MEDS: HYDROCODONE/APAP (5/325) TAB PO PRN (13:00)
--- NOTE | 2017-02-20 03:44 | DS ---
DATE OF ADMISSION: 02/11/2017 DATE OF DISCHARGE: 02/19/2017 DISCHARGE DIAGNOSES: 1. Acute left acetabular fracture. No surgical intervention recommended. The patient is to be non weightbearing for the next 6 weeks. Discharge to halfway. 2. Left humeral fracture. Once again, conservative management. No surgery indicated at this time. Splint has been placed. 3. History of hypothyroidism, stable. 4. History of dyslipidemia, stable. 5. Obesity, stable. HOSPITAL COURSE: The patient is a 66-year-old female with a history of obesity, diabetes, dyslipide troy, hypothyroidism, and glaucoma. The patient presents after having fallen over a garden hose. Samuel gill fell on her left side. The patient was diagnosed with a left acetabular fracture, nondisplaced fr acture noted on the CT of the lower extremity. The patient also had a left humerus fracture. The a rm was placed in a cast. The patient was seen by orthopedics. Recommendation was for conservative care. No surgical intervention was recommended. The patient was to be nonweightbearing on the left leg for 6 weeks. The patient was to keep her left arm in the cast as well. Recommendation from or opedi was for the patient to go to a halfway as once again she will be nonweightbearing for up to 6 weeks. The patient's pain was controlled. She was started on Neurontin as she had what ap peared to be neuropathic pain in the left leg. Neurontin did help her with that pain. The patient was felt to be stable for discharge. On day of discharge, the patient's vitals, labs, physical exam were stable. Arrangements were made for the patient to go to [facility]. The patient's questions were answered. She had no acute issues on the day of discharge. CONDITION ON DISCHARGE: Stable. DISPOSITION: [facility]. MEDICATIONS: The patient is to continue her usual home medications. She was also given Cipro 500 m g p.o. b.i.d. for 5 days for UTI and [place] 5/325 one tab p.o. q. 4 hours p.r.n. for pain. FOLLOWUP: The patient is to follow up with physicians at [facility] Greater than 30 minutes was spent coordinating discharge of patient. Dictated By: TARAN MADRIGAL MD BS/NTS Conf#: [id number] DID#: [id number]
== END 2017-02-19 13:12 | DRG 536 ==
LOC: FTE 16:28 → MS1 23:35
PROVIDERS: ADMIT Family Medicine; ATTEND Family Medicine
DX: S32.402A Unspecified fracture of left acetabulum, initial encounter for closed fracture (principal); R44.2 Other hallucinations; S42.412A Displaced simple supracondylar fracture without intercondylar fracture of left humerus, initial encounter for closed fracture; E11.9 Type 2 diabetes mellitus without complications; E78.5 Hyperlipidemia, unspecified; E03.9 Hypothyroidism, unspecified; E66.9 Obesity, unspecified; H40.9 Unspecified glaucoma; R29.6 Repeated falls; M81.0 Age-related osteoporosis without current pathological fracture; Z68.35 Body mass index [BMI] 35.0-35.9, adult
CPT/HCPCS: 73200; 73510; 73700; 80048; 80053; 81001; 82962; 83036; 83735; 84100; 85025; 85610; 85730; 87086; 97110; 97162; 97166; 97530; J0696; J1170; J1644; J1815; J2405; J3475